=== PATIENT | male | born 1950 | race Caucasian/White ===

== ENCOUNTER 2020-08-22 21:49 | Observation (INO) ==
[2020-08-22 22:07] LABS: Basophils % 0.4 % (0.0-0.8); Eosinophils # 0.1 10*3/uL (0.0-0.87); Eosinophils % 1.7 % (0.00-10.9); Hematocrit 42.5 VOL% (42.0-52.0); Hemoglobin 15.2 GM/DL (14.0-18.0); Immature Granulocytes % 0.1 %; Immature Granulocytes Absolute 0.01 #; Lymphocytes # 2.8 10*3/uL (1.4-4.0); Lymphocytes % 34.6 % (21.2-54.2); Mean Corpuscular HGB Conc 35.8 GM/DL (32-36); Mean Corpuscular Volume 86.9 FL (87-102); Mean Platelet Volume 9.8 FL (9.6-12.0); Monocytes % 10.1 % (1.7-12.7); Neutrophils % 53.1 % (38.7-73.9); Platelet Count 245 T/CUMM (130-400); Red Blood Count 4.89 MC/CUMM (3.8-5.5); Red Cell Distribution Width 13.1 % (9.3-17.3)
[2020-08-22 22:30] LABS: Alanine Aminotransferase 36 U/L (16-61); Alkaline Phosphatase 103 U/L (45-117); Aspartate Amino Transferase 21 U/L (0-37); Bilirubin,Total < 0.39 MG/DL (0.2-1.0); Blood Urea Nitrogen 21 MG/DL (7-18); Calcium 9.7 MG/DL (8.5-10.1); Carbon Dioxide 29 MMOL/L (21-32); Estimated Glom Filtration Rate 79 ML/MIN; Glucose 102 MG/DL (74-106); Osmolality,Calculated 277.7 MOS/KG (273-304); Potassium 3.8 MMOL/L (3.5-5.1); Sodium 138 MMOL/L (136-145); Total Protein 7.7 G/DL (6.4-8.3)
[2020-08-22] MEDS ORDERED: SODIUM CHLORIDE 0.9% 500 ML IV STA (22:34)
[2020-08-22] MEDS ORDERED: MECLIZINE 25 MG TABLET PO STA (22:34)
[2020-08-22] MEDS ORDERED: ONDANSETRON 4 MG/2 ML VIAL IV STA (22:34)
[2020-08-22 23:06] LABS: Thyroid Stimulating Hormone 3.98 uIU/ml (0.358-3.74)
[2020-08-23 00:04] LABS: Bacteria,Urine Occasional /HPF (Few); Bilirubin,Urine Negative (Negative); Blood, Urine Negative (Negative); Glucose,Urine (UA) Negative (Negative); Ketones,Urine Negative (Negative); Mucus,Urine Occasional /LPF (Occasional); Nitrite,Urine Negative (Negative); Protein,Urine Negative; RBC,Urine 1 /HPF (0-4); Urine Appearance CLEAR (Clear); Urine Color Yellow (Yellow); Urine Specific Gravity 1.011 (1.001-1.035); Urine Urobilinogen < 2.0 EU/DL (0.2-1.0); WBC,Urine 1 /HPF (0-6)
[2020-08-23] MEDS ORDERED: DEXTROSE 50% 25 GM/50 ML VIAL IV PRN (03:32)
[2020-08-23] MEDS ORDERED: hydrALAZINE 20 MG/1 ML VIAL IV PRN (03:32)
[2020-08-23] MEDS ORDERED: ACETAMINOPHEN 325 MG TABLET PO PRN (03:32)
[2020-08-23] MEDS ORDERED: MORPHINE 4 MG/1 ML VIAL IV PRN (03:32)
[2020-08-23] MEDS ORDERED: DOCUSATE SODIUM 100 MG CAPSULE PO PRN (03:32)
[2020-08-23] MEDS ORDERED: GLUCAGON 1 MG VIAL IM PRN (03:32)
[2020-08-23] MEDS ORDERED: ONDANSETRON 4 MG/2 ML VIAL IV PRN (03:32)
[2020-08-23] MEDS ORDERED: SODIUM CHLORIDE 0.9% 1,000 ML IV SCH (04:00)
[2020-08-23 04:04] LABS: Risk Ratio 3.55
[2020-08-23 04:08] LABS: Free T4 (Free Thyroxine) 1.03 NG/DL (0.76-1.46)
[2020-08-23] MEDS ORDERED: ENOXAPARIN 40 MG/0.4 ML SYRINGE SUBCUT SCH (08:00)
[2020-08-23] MEDS ORDERED: ASPIRIN EC 81 MG TABLET PO SCH (09:00)
[2020-08-23] MEDS ORDERED: ATORVASTATIN 40 MG TABLET PO SCH (09:00)
[2020-08-23] MEDS: INSULIN LISPRO 100 UNIT/ML SUBCUT SCH ×3 (09:08→17:28)
[2020-08-23 09:45] VITALS: BP 107/74
[2020-08-24 11:26] LABS: Triiodothyronine (T3) Total 110 ng/dL (80 - 200)
== END 2020-08-23 18:06 | disposition home or self-care (01) ==
LOC: N.ED 21:49 → N.EDINP 21:49 → N.TELEN 08-23 08:23
PROVIDERS: ADMIT Internal Medicine; ATTEND Internal Medicine